=== PATIENT | female | born 1995 | race Hispanic/Latino ===

== ENCOUNTER 2017-09-29 17:03 | Inpatient (IN) | payer MEDICAID ==
[2017-09-29] MEDS ORDERED: LACTATED RINGERS 1000ML 1,000 ML IV PRN (17:32)
[2017-09-29] MEDS ORDERED: OXYTOCIN-LR 20 UNITS/1000 ML 1,000 ML IV SCH (17:45)
[2017-09-29] MEDS ORDERED: LACTATED RINGERS 1000ML 1,000 ML IV ONE ×2 (17:50→18:35)
[2017-09-29 18:16] LABS: HEMATOCRIT 27.7 % (36-48); MEAN CORPUSCULAR HEMOGLOBIN 23.3 pg (27.0-33.0); MEAN CORPUSCULAR HGB CONC 33.1 g/dL (32.0-36.0); MEAN CORPUSCULAR VOLUME 70.3 fL (79-99); PLATELET COUNT (AUTO) 191 K/uL (130-400); RED BLOOD CELL COUNT(AUTO) 3.95 MIL/uL (4.00-5.50); RED CELL DISTRIBUTION WIDTH 20.3 % (11.0-15.5)
[2017-09-30] MEDS ORDERED: LACTATED RINGERS 1000ML 1,000 ML IV ONE ×2 (01:43→14:58)
[2017-09-30] MEDS ORDERED: OXYTOCIN 10 USP UNITS/ML ONE ×2 (01:43→14:58)
[2017-09-30] MEDS ORDERED: OXYTOCIN 10 USP UNITS/ML 20 UNIT in LACTATED RINGERS 1000ML 1,000 ML IV SCH (03:00)
[2017-09-30] MEDS ORDERED: MEPERIDINE-PF 50 MG/ML SYG IM SCH (10:15)
[2017-09-30] MEDS ORDERED: PROMETHAZINE HCL 25 MG/ML 1ML AMPULE IM SCH (10:15)
[2017-09-30] MEDS ORDERED: MEASLES/MUMPS/RUBELLA VACCINE, LIVE 0.5 ML/VIAL SQ PRN (15:45)
[2017-09-30] MEDS ORDERED: IBUPROFEN 600 MG TABLET PO PRN (15:45)
[2017-09-30] MEDS ORDERED: ACETAMINOPHEN 325 MG TAB PO PRN (15:45)
[2017-09-30] MEDS ORDERED: BENZOCAINE/LANOLIN/ALOE VERA 60 ML AEROSOL TP PRN (15:45)
[2017-09-30] MEDS ORDERED: LANOLIN 30GM OINTMENT TP PRN (15:45)
[2017-09-30] MEDS ORDERED: WITCH HAZEL 1 PAD TP PRN (15:45)
[2017-09-30] MEDS ORDERED: DIPH,PERTUSS(ACELL),TET VAC/PF 0.5 ML VIAL IM PRN (15:45)
[2017-09-30 16:00] VITALS: BP 129/69
[2017-09-30] MEDS ORDERED: FERR-82 PO (16:11)
[2017-09-30] MEDS: IBUPROFEN 800 MG TAB PO PRN (19:38)
[2017-09-30 20:44] VITALS: BP 130/71
[2017-09-30] MEDS: DOCUSATE SODIUM 100 MG CAP PO SCH (21:03)
[2017-09-30 23:14] VITALS: BP 129/65
[2017-10-01 03:26] VITALS: BP 105/77
[2017-10-01 05:40] LABS: HEMATOCRIT 21.4 % (36-48); MEAN CORPUSCULAR HEMOGLOBIN 23.7 pg (27.0-33.0); MEAN CORPUSCULAR HGB CONC 33.5 g/dL (32.0-36.0); MEAN CORPUSCULAR VOLUME 70.8 fL (79-99); PLATELET COUNT (AUTO) 127 K/uL (130-400); RED BLOOD CELL COUNT(AUTO) 3.03 MIL/uL (4.00-5.50); RED CELL DISTRIBUTION WIDTH 20.1 % (11.0-15.5); WHITE BLOOD COUNT (AUTO) 10.4 K/uL (4.8-10.8)
[2017-10-01] MEDS ORDERED: SODIUM CHLORIDE 0.9% 1000ML 1,000 ML IV SCH (06:30)
[2017-10-01 07:38] VITALS: BP 140/82
[2017-10-01 08:25] LABS: HEPATITIS Bs ANTIGEN SCREEN P Negative (Negative)
[2017-10-01] MEDS: DOCUSATE SODIUM 100 MG CAP PO SCH (09:01)
[2017-10-01] MEDS: IBUPROFEN 800 MG TAB PO PRN (09:02)
[2017-10-01 11:32] VITALS: BP 121/86
== END 2017-10-01 14:30 | disposition home or self-care (01) | DRG 560 ==
LOC: LDH 17:03 → WSH 09-30 16:10
PROVIDERS: ADMIT Obstetrics & Gynecology; ATTEND Obstetrics & Gynecology
PROC: 10E0XZZ Delivery of Products of Conception, External Approach (ICD-10-PCS; principal; 2017-09-30)
PROC: 0HQ9XZZ Repair Perineum Skin, External Approach (ICD-10-PCS; 2017-09-30)
PROC: 10907ZC Drainage of Amniotic Fluid, Therapeutic from Products of Conception, Via Natural or Artificial Opening (ICD-10-PCS; 2017-09-30)
PROC: 3E033VJ Introduction of Other Hormone into Peripheral Vein, Percutaneous Approach (ICD-10-PCS; 2017-09-30)
DX: O69.81X0 Labor and delivery complicated by cord around neck, without compression, not applicable or unspecified (principal); D64.9 Anemia, unspecified; Z3A.39 39 weeks gestation of pregnancy; O99.02 Anemia complicating childbirth; O70.0 First degree perineal laceration during delivery; Z53.20 Procedure and treatment not carried out because of patient's decision for unspecified reasons
CPT/HCPCS: 36415; 85027; 86592; 86850; 86900; 86901; 86922; 87340; A4351; A4606; J2175; J2550; J2590; J7120